=== PATIENT | male | born 1970 | race African-American/Black ===

== ENCOUNTER 2017-03-12 09:53 | Emergency (ER) | payer OTHER ==
[~2017-03-12] VITALS: Ht 182.9 cm; Wt 116.0 kg
[~2017-03-12 09:53] MED LIST: ALLEGRA-D12 HOUR OR; HYCODAN5 MG OR
[2017-03-12] MEDS ORDERED: BUSPAR5 MG PO (10:05)
[2017-03-12] MEDS ORDERED: TRAZODONE50 MG PO (10:06)
[2017-03-12] MEDS ORDERED: CELEBREX100 M1 PO (10:06)
[2017-03-12] MEDS ORDERED: FLEXERIL PO (12:09)
[2017-03-12] MEDS ORDERED: LORTAB 10-325 M1 TAB PO (12:09)
[2017-03-12 12:11] VITALS: BP 141/94
== END 2017-03-12 12:11 | disposition home or self-care (01) | DRG 563 ==
LOC: ED 09:53
DX: S39.012A Strain of muscle, fascia and tendon of lower back, initial encounter (principal); X50.3XXA Overexertion from repetitive movements, initial encounter; Y93.H9 Activity, other involving exterior property and land maintenance, building and construction; Y92.008 Other place in unspecified non-institutional (private) residence as the place of occurrence of the external cause

== ENCOUNTER 2018-04-23 18:48 | Emergency (ER) | payer OTHER ==
[~2018-04-23] VITALS: Ht 182.9 cm; Wt 117.0 kg
[~2018-04-23 18:48] MED LIST changes: +BUSPAR5 MG PO; +CELEBREX100 M1 PO; +FLEXERIL PO; +LORTAB 10-325 M1 TAB PO; +TRAZODONE50 MG PO
[2018-04-23] MEDS ORDERED: TRAZODONE50 MG PO (19:21)
[2018-04-23] MEDS ORDERED: CELEXA40 M1 PO (19:21)
[2018-04-23] MEDS ORDERED: HYDROCODONE/ACE1 TAB PO (21:31)
[2018-04-23] MEDS ORDERED: STERAPRED DS10 MG PO (21:31)
[2018-04-23 21:35] VITALS: BP 118/86
== END 2018-04-23 21:42 | disposition home or self-care (01) | DRG 74 ==
LOC: ED 18:48
DX: M54.12 Radiculopathy, cervical region (principal)